=== PATIENT | female | born 1985 | race Caucasian/White ===

== ENCOUNTER 2016-05-31 14:58 | Emergency (ER) | payer BC ==
[~2016-05-31] VITALS: Ht 172.7 cm; Wt 158.8 kg
[2016-05-31] MEDS ORDERED: VISTARIL25 MG PO (15:25)
--- NOTE | 2016-05-31 15:39 | Emergency Room Report ---
History of Present Illness Time Seen by MD Roberts Presenting Problem in Triage Pt arrived:Walked Presenting Problem:PT REPORTS FEELING ANXIOUS AND DIZZY X2 DAYS. TODAY PT REPORTS EXPERIENCING NAUSEA. PT STATES SHE FELT TIGHTNESS ACROSS CHEST X2 DAYS. PT DENIES CHEST PAIN. PT STATES ANXIETY APPEARED SUDDENLY. 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 N Clinical Suspician of Infection? N Mental Status: 1 - Regular (Normal Baseline) Sepsis Risk:Possible Sepsis Risk Have you (or family members/close friends) recently traveled outside the [place]? N If Yes, where/when: Have you had exposure to infectious disease within the past month? N TB? Other? Specify: Source patient, RN notes reviewed Exam Limitations no limitations Comment History of Anciety and panic attacks but somewhat worse over the past couple of days. Some dizziness and concerned about vertigo. Took some vistaril earlier. She has PCOS and she and have been going through the process to have foster children over the past 6 monhts or so Cardiac Chest Pain Chest pain indicative of cardiac No ALLERGIES Coded Allergies: penicillin G (Mild, 06/29/15) Home Medications Reported Medications Hydroxyzine Pamoate (Vistaril) 25 MG PO TID PRN History Medical History General CAD? No Angina: No [place]: No Hypertension? No Hyperlipidemia? No CHF? No DVT? No PE? No COPD? No Asthma? Yes Anemia? No GERD? No Gastric ulcers? No GI Bleed? No Hernia? Yes Thyroid Problems? No Hypothyroidism? No CVA? No Seizures? No Diabetes? No Renal Insuffiency? No End Stage Renal Disease? No UTI? No Stones? No BPH? No GB Disease: Yes Nephritic Syndrome? No Asplenia? No Hepatitis? No Sickle Cell Disease? No Arthritis? No Migraines? No Cataracts? No Glaucoma? No MRSA? No HIV? No TB? No Anxiety? Yes Depression? No Cancer? No More? 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 Family History Family Hx Diabetes Yes CAD Yes Hypertension Yes Hyperlipidemia No Cancer Yes TB No Social History Smoking Hx Smoker: Current Every Day Smoker Tobacco: Yes Type Cigarettes Packs/day < 1 Pack Are you/the child exposed to second-hand smoke: Yes Alcohol Alcohol: No Review of Systems All Other Systems Reviewed and Negative Constitutional see HPI Psychiatric/Neurological see HPI Physical Exam Vital Signs Vital Signs Date Time Temp Pulse Resp B/P Pulse O2 O2 Flow FiO2 Ox Delivery Rate 05/31 1628 86 18 138/81 99 05/31 1523 98.3 106 20 152/88 99 05/31 1511 98.3 106 20 152/88 99 General Appearance normal appearance, WD/WN, no apparent distress, obese Ear, Nose, Throat normal ENT inspection Respiratory Status No: respiratory distress. 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 No Results/Orders Laboratory Tests 05/31/16 1626: Sodium 140, Potassium 3.9, Chloride 103, Carbon Dioxide 28, BUN 9, Creatinine 1.0, Estimated Creat Clear 201 H, Estimated GFR (MDRD) 64, Glucose 109 H, Calcium 9.1, Total Bilirubin 0.3, AST 13 L, ALT 20, Alkaline Phosphatase 72, Total Protein 7.4, Albumin 3.7, Globulin 3.7 H, Albumin/Globulin Ratio 1.0 L, WBC 6.9, RBC 4.65, Hgb 13.8, Hct 41.0, MCV 88.1, RDW 13.4, Plt Count 307, MPV 5.6 L, Gran % 61.0, Gran # 4.2, Lymphocytes % 32.4, Monocytes % 2.8, Eosinophils % 3.3, Basophils % 0.4, Lymphocytes # 2.2, Monocytes # 0.2, Eosinophils # 0.2, Basophils # 0.0, PUBS MCHC 33.7, MCH 29.7 05/31/16 1610: Urine Color YELLOW, Urine Appearance CLEAR, Urine pH 6.0, Ur Specific [place] <= 1.005, Urine Protein NEGATIVE, Urine Ketones NEGATIVE, Urine Blood TRACE-INTACT, Urine Nitrate NEGATIVE, Urine Bilirubin NEGATIVE, Urine Urobilinogen 0.2, Ur Leukocyte Esterase NEGATIVE, Urine RBC OCC, Urine WBC OCC, Ur Squamous Epith Cells OCC, Urine Bacteria 2+, Urine Glucose NEGATIVE Current Medication Orders Sig/Cristina Start time Last Medication Dose Route Stop Time Status Admin Buspirone HCl 0 .STK-MED ONE 05/31 1610 DC PO Buspirone HCl 5 MG ONCE ONE 05/31 1600 DC 05/31 PO 05/31 1601 1613 Orders Procedure Date/time Status CULTURE, URINE 05/31 1610 Active URINALYSIS/COMPLETE 05/31 1558 Complete URINE 05/31 1558 Complete CBC WITH AUTO DIFF 05/31 1558 Complete CHEM 12 PROFILE 05/31 1558 Complete Departure Departure Time of Disposition 1707 Disposition DC Home or Self Care(routine) Clinical Impression Primary Impression: Generalized anxiety disorder Condition STABLE Referrals Jolene Carter MD (Family): 3 Days-Call Office Patient Instructions DI for Anxiety -- Adult, Generalized Anxiety Disorder Additional Instructions Use meds as directed and return to the ED or followup with PCP as needed. Discharge Counseling Counseled pt/family regarding diagnosis, test results, medications/RX, home care, follow up needs Prescriptions Current Visit Scripts Buspirone Hcl (Buspar 10MG) 5 MG PO TID #30 TAB ED Critical Care Critical Care No If Critical Care minutes are documented, the time involved in the performance of seperately reportable procedures was not counted toward critical care time documented. I directly delivered medical care to this critically ill and/or injured patient. Timely evaluation and treatment was necessary to address the significant organ system(s) dysfunction present in this patient. at 1707
[2016-05-31 16:21] LABS: URINE BILIRUBIN - DIPSTICK NEGATIVE (NEG); URINE BLOOD TRACE-INTACT (NEG)
[2016-05-31 16:31] LABS: URINE SQUAMOUS CELLS OCC #/hpf (0-5)
[2016-05-31 16:39] LABS: HEMOGLOBIN 13.8 g/dL (12.2-16.2); LYMPH # 2.2 K/mm3 (0.7-4.5); LYMPH % 32.4 % (10-50.0)
[2016-05-31] MEDS ORDERED: BUSPAR 10MG TAB10 MG PO (17:09)
[2016-05-31 17:41] VITALS: BP 108/73
== END 2016-05-31 17:42 | disposition home or self-care (01) ==
LOC: UTC 14:58 → ER 15:00 → UTC 15:00 → ER 17:42
PROVIDERS: General Practice
DX: F41.9 Anxiety disorder, unspecified (principal); Z63.79 Other stressful life events affecting family and household

== ENCOUNTER 2016-11-28 14:40 | Emergency (ER) | payer BC ==
[~2016-11-28] VITALS: Ht 172.7 cm; Wt 170.1 kg
[~2016-11-28 14:40] MED LIST: BUSPAR 10MG TAB10 MG PO; VISTARIL25 MG PO
[2016-11-28] MEDS ORDERED: VIIBRYD10 MG PO (14:48)
[2016-11-28 14:58] LABS: HEMOGLOBIN 14.7 g/dL (12.2-16.2); LYMPH # 3.3 K/mm3 (0.7-4.5); LYMPH % 35.2 % (10-50.0)
[2016-11-28 15:18] LABS: BUN 10 mg/dL (7-18)
[2016-11-28 15:29] LABS: GFR (ESTIMATED) 64 ML/MIN (59-)
--- NOTE | 2016-11-28 15:41 | Emergency Room Report ---
History of Present Illness Time Seen by MD Howell Presenting Problem in Triage Pt arrived:Walked Presenting Problem:PT REPORTS NOT FEELING WELL X2 DAYS. PT REPORTS HAVING FEELINGS OF RAPID HEART RATE, REPORTS PERIODS OF FEELING LIGHTHEAD, ANXIOUS AND DULL PAIN IN CHEST. PT DENIES ANY PAIN AT THIS TIME. 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 N Clinical Suspician of Infection? N Mental Status: 1 - Regular (Normal Baseline) Sepsis Risk:Low Sepsis Risk Have you (or family members/close friends) recently traveled outside the [place]? N If Yes, where/when: Have you had exposure to infectious disease within the past month? N TB? Other? Specify: Comment Patient complains of rapid heartbeat and chest discomfort, possible panic attack. Symptoms for 2 days. Prior history of anxiety and panic attacks, but this is worse. She is been on 3 different medications for her symptoms without improvement. No recent stressors, except had a foster child that went back to its parents last week. ALLERGIES Coded Allergies: penicillin G (Mild, 06/29/15) Home Medications Reported Medications Vilazodone Hydrochloride (Viibryd) 10 MG PO DAILY History Medical History General CAD? No Angina: No [place]: No Hypertension? No Hyperlipidemia? No CHF? No DVT? No PE? No COPD? No Asthma? Yes Anemia? No GERD? No Gastric ulcers? No GI Bleed? No Hernia? Yes Thyroid Problems? No Hypothyroidism? No CVA? No Seizures? No Diabetes? No Renal Insuffiency? No End Stage Renal Disease? No UTI? No Stones? No BPH? No GB Disease: Yes Nephritic Syndrome? No Asplenia? No Hepatitis? No Sickle Cell Disease? No Arthritis? No Migraines? No Cataracts? No Glaucoma? No MRSA? No HIV? No TB? No Anxiety? Yes Depression? No Cancer? No More? 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 Family History Family Hx Diabetes Yes CAD Yes Hypertension Yes Hyperlipidemia No Cancer Yes TB No Social History Smoking Hx Smoker: Current Every Day Smoker Tobacco: Yes Type Cigarettes Packs/day < 1 Pack Alcohol Alcohol: No Review of Systems All Other Systems Reviewed and Negative Respiratory shortness of breath Cardiovascular chest pain, palpitations Physical Exam Vital Signs Vital Signs Date Time Temp Pulse Resp B/P Pulse O2 O2 Flow FiO2 Ox Delivery Rate 11/28 1628 20 11/28 1543 91 18 160/75 98 11/28 1443 98.7 95 18 160/102 98 General Appearance no apparent distress Eye Exam - bilateral eye normal exam, bilateral eye PERRL, bilateral eye EOMI Ear, Nose, Throat hearing grossly normal, normal ENT inspection Neck normal inspection, non-tender, supple, full range of motion Respiratory Status Yes: trachea midline, chest symmetrical. No: respiratory distress. Lung Sounds bilateral: normal breath sounds, lungs clear. Cardiovascular normal exam, regular rate/rhythm, no peripheral edema, no gallop, no JVD, no murmur, no rub, normal peripheral pulses Peripheral Pulses Pulses normal Yes Gastrointestinal normal bowel sounds, normal exam, non tender, soft, no organomegaly Extremities non-tender, normal range of motion, normal inspection Neurologic alert, normal exam, oriented x 3 Mental status normal mood/affect Skin intact, normal color, warm/dry Medical Decision Making LABS/Meds/Orders Pt receiving controlled substance in ED? Yes Kamar was queried for this patient? Yes Comment [id number] 0 rxs. Results/Orders Laboratory Tests 11/28/16 1515: Urine Color STRAW, Urine Appearance CLEAR, Urine pH 6.0, Ur Specific [place] <= 1.005, Urine Protein NEGATIVE, Urine Ketones NEGATIVE, Urine Blood TRACE-LYSED, Urine Nitrate NEGATIVE, Urine Bilirubin NEGATIVE, Urine Urobilinogen 0.2, Ur Leukocyte Esterase TRACE H, Urine WBC 3-5, Ur Squamous Epith Cells 5-10, Urine Bacteria 3+, Urine Glucose NEGATIVE 11/28/16 1445: TSH 2.41, Thyroxine (T4) 10.4 11/28/16 1445: Sodium 137, Potassium 3.8, Chloride 104, Carbon Dioxide 25, BUN 10, Creatinine 1.0, Estimated Creat Clear 214 H, Estimated GFR (MDRD) 64, Glucose 134 H, Calcium 8.8, Total Bilirubin 0.3, AST 11 L, ALT 19, Alkaline Phosphatase 72, Creatine Kinase 85, CK-MB (CK-2) Rel Index 0.6, CK and CKMB Interp < 0.5, Troponin I < 0.02, Total Protein 8.0, Albumin 3.8, Globulin 4.2 H, Albumin/ Globulin Ratio 0.9 L, D-Dimer 127, WBC 9.4, RBC 5.17, Hgb 14.7, Hct 44.1, MCV 85.2, RDW 13.6, Plt Count 300, MPV 7.0 L, Gran % 57.5, Gran # 5.4, Lymphocytes % 35.2, Monocytes % 4.2, Eosinophils % 2.7, Basophils % 0.4, Lymphocytes # 3.3, Monocytes # 0.4, Eosinophils # 0.3, Basophils # 0.0, PUBS MCHC 33.4, MCH 28.5 Current Medication Orders Sig/Cristina Start time Last Medication Dose Route Stop Time Status Admin Lorazepam 0 .STK-MED ONE 11/28 1626 DC .ROUTE Lorazepam 1 MG ONCE ONE 11/28 1600 DC 11/28 IV 11/28 1601 1628 Sodium Chloride 10 ML PRN PRN 11/28 1500 AC IV 11/29 1452 Orders Procedure Date/time Status CHEST(2 VIEWS-NOT PORTABLE) 11/28 1604 Active THYROID STIMULATING HORMONE 11/28 1548 Complete THYROXINE (T4) 11/28 1548 Complete D-DIMER 11/28 1548 Complete URINALYSIS/COMPLETE 11/28 1523 Complete CULTURE, URINE 11/28 1515 Active ELECTROCARDIOGRAM REQUEST 11/28 1452 Active IV SALINE LOCK 11/28 1452 Active CBC WITH AUTO DIFF 11/28 1452 Complete CARDIAC ENZYMES 11/28 1452 Complete CHEM 12 PROFILE 11/28 1452 Complete 12 LEAD EKG-[facility] (INITIAL) 11/28 UNK Active CM/EKG CM/EKG Comments EKG interpreted by Arnol Lujan MD: Rhythm: sinus tachycardia Rate: 102 [place]: Rightward Ectopy: none Conduction: normal ST Segment Changes: none T Wave Changes: none Q Waves: none No evidence of acute ischemia or injury XRAY/CT/US XRAY/CT/US XRAY chest Comment Chest x-ray interpreted by Arnol Lujan M.D. No infiltrate, pneumothorax, pleural effusion, or wide mediastinum. Epicardial fat pad. No prior x-rays for comparison. Departure Departure Disposition DC Home or Self Care(routine) Clinical Impression Primary Impression: Atypical chest pain Secondary Impressions: Palpitations, Panic disorder Condition STABLE Referrals Adele FERREIRA,Jaydon (Family) Patient Instructions DI for Atypical Chest Pain, DI for Palpitations, DI for Panic Disorder Additional Instructions Additional instructions for CHEST PAIN: See your physician as soon as possible for further evaluation. Return immediately if worsening chest pain, vomiting, shortness of breath, fever, coughing of blood. Prescriptions Current Visit Scripts Lorazepam (Ativan) 1 MG PO TIDP PRN anxiety #9 TAB ED Critical Care Critical Care No
--- NOTE | 2016-11-28 15:41 | Emergency Room Report ---
History of Present Illness Time Seen by MD Howell Presenting Problem in Triage Pt arrived:Walked Presenting Problem:PT REPORTS NOT FEELING WELL X2 DAYS. PT REPORTS HAVING FEELINGS OF RAPID HEART RATE, REPORTS PERIODS OF FEELING LIGHTHEAD, ANXIOUS AND DULL PAIN IN CHEST. PT DENIES ANY PAIN AT THIS TIME. 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 N Clinical Suspician of Infection? N Mental Status: 1 - Regular (Normal Baseline) Sepsis Risk:Low Sepsis Risk Have you (or family members/close friends) recently traveled outside the [place]? N If Yes, where/when: Have you had exposure to infectious disease within the past month? N TB? Other? Specify: Comment Patient complains of rapid heartbeat and chest discomfort, possible panic attack. Symptoms for 2 days. Prior history of anxiety and panic attacks, but this is worse. She is been on 3 different medications for her symptoms without improvement. No recent stressors, except had a foster child that went back to its parents last week. ALLERGIES Coded Allergies: penicillin G (Mild, 06/29/15) Home Medications Reported Medications Vilazodone Hydrochloride (Viibryd) 10 MG PO DAILY History Medical History General CAD? No Angina: No [place]: No Hypertension? No Hyperlipidemia? No CHF? No DVT? No PE? No COPD? No Asthma? Yes Anemia? No GERD? No Gastric ulcers? No GI Bleed? No Hernia? Yes Thyroid Problems? No Hypothyroidism? No CVA? No Seizures? No Diabetes? No Renal Insuffiency? No End Stage Renal Disease? No UTI? No Stones? No BPH? No GB Disease: Yes Nephritic Syndrome? No Asplenia? No Hepatitis? No Sickle Cell Disease? No Arthritis? No Migraines? No Cataracts? No Glaucoma? No MRSA? No HIV? No TB? No Anxiety? Yes Depression? No Cancer? No More? 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 Family History Family Hx Diabetes Yes CAD Yes Hypertension Yes Hyperlipidemia No Cancer Yes TB No Social History Smoking Hx Smoker: Current Every Day Smoker Tobacco: Yes Type Cigarettes Packs/day < 1 Pack Alcohol Alcohol: No Review of Systems All Other Systems Reviewed and Negative Respiratory shortness of breath Cardiovascular chest pain, palpitations Physical Exam Vital Signs Vital Signs Date Time Temp Pulse Resp B/P Pulse O2 O2 Flow FiO2 Ox Delivery Rate 11/28 1628 20 11/28 1543 91 18 160/75 98 11/28 1443 98.7 95 18 160/102 98 General Appearance no apparent distress Eye Exam - bilateral eye normal exam, bilateral eye PERRL, bilateral eye EOMI Ear, Nose, Throat hearing grossly normal, normal ENT inspection Neck normal inspection, non-tender, supple, full range of motion Respiratory Status Yes: trachea midline, chest symmetrical. No: respiratory distress. Lung Sounds bilateral: normal breath sounds, lungs clear. Cardiovascular normal exam, regular rate/rhythm, no peripheral edema, no gallop, no JVD, no murmur, no rub, normal peripheral pulses Peripheral Pulses Pulses normal Yes Gastrointestinal normal bowel sounds, normal exam, non tender, soft, no organomegaly Extremities non-tender, normal range of motion, normal inspection Neurologic alert, normal exam, oriented x 3 Mental status normal mood/affect Skin intact, normal color, warm/dry Medical Decision Making LABS/Meds/Orders Pt receiving controlled substance in ED? Yes Kamar was queried for this patient? Yes Comment [id number] 0 rxs. Results/Orders Laboratory Tests 11/28/16 1515: Urine Color STRAW, Urine Appearance CLEAR, Urine pH 6.0, Ur Specific [place] <= 1.005, Urine Protein NEGATIVE, Urine Ketones NEGATIVE, Urine Blood TRACE-LYSED, Urine Nitrate NEGATIVE, Urine Bilirubin NEGATIVE, Urine Urobilinogen 0.2, Ur Leukocyte Esterase TRACE H, Urine WBC 3-5, Ur Squamous Epith Cells 5-10, Urine Bacteria 3+, Urine Glucose NEGATIVE 11/28/16 1445: TSH 2.41, Thyroxine (T4) 10.4 11/28/16 1445: Sodium 137, Potassium 3.8, Chloride 104, Carbon Dioxide 25, BUN 10, Creatinine 1.0, Estimated Creat Clear 214 H, Estimated GFR (MDRD) 64, Glucose 134 H, Calcium 8.8, Total Bilirubin 0.3, AST 11 L, ALT 19, Alkaline Phosphatase 72, Creatine Kinase 85, CK-MB (CK-2) Rel Index 0.6, CK and CKMB Interp < 0.5, Troponin I < 0.02, Total Protein 8.0, Albumin 3.8, Globulin 4.2 H, Albumin/ Globulin Ratio 0.9 L, D-Dimer 127, WBC 9.4, RBC 5.17, Hgb 14.7, Hct 44.1, MCV 85.2, RDW 13.6, Plt Count 300, MPV 7.0 L, Gran % 57.5, Gran # 5.4, Lymphocytes % 35.2, Monocytes % 4.2, Eosinophils % 2.7, Basophils % 0.4, Lymphocytes # 3.3, Monocytes # 0.4, Eosinophils # 0.3, Basophils # 0.0, PUBS MCHC 33.4, MCH 28.5 Current Medication Orders Sig/Cristina Start time Last Medication Dose Route Stop Time Status Admin Lorazepam 0 .STK-MED ONE 11/28 1626 DC .ROUTE Lorazepam 1 MG ONCE ONE 11/28 1600 DC 11/28 IV 11/28 1601 1628 Sodium Chloride 10 ML PRN PRN 11/28 1500 AC IV 11/29 1452 Orders Procedure Date/time Status CHEST(2 VIEWS-NOT PORTABLE) 11/28 1604 Active THYROID STIMULATING HORMONE 11/28 1548 Complete THYROXINE (T4) 11/28 1548 Complete D-DIMER 11/28 1548 Complete URINALYSIS/COMPLETE 11/28 1523 Complete CULTURE, URINE 11/28 1515 Active ELECTROCARDIOGRAM REQUEST 11/28 1452 Active IV SALINE LOCK 11/28 1452 Active CBC WITH AUTO DIFF 11/28 1452 Complete CARDIAC ENZYMES 11/28 1452 Complete CHEM 12 PROFILE 11/28 1452 Complete 12 LEAD EKG-[facility] (INITIAL) 11/28 UNK Active CM/EKG CM/EKG Comments EKG interpreted by Arnol Lujan MD: Rhythm: sinus tachycardia Rate: 102 [place]: Rightward Ectopy: none Conduction: normal ST Segment Changes: none T Wave Changes: none Q Waves: none No evidence of acute ischemia or injury XRAY/CT/US XRAY/CT/US XRAY chest Comment Chest x-ray interpreted by Arnol Lujan M.D. No infiltrate, pneumothorax, pleural effusion, or wide mediastinum. Epicardial fat pad. No prior x-rays for comparison. Departure Departure Disposition DC Home or Self Care(routine) Clinical Impression Primary Impression: Atypical chest pain Secondary Impressions: Palpitations, Panic disorder Condition STABLE Referrals Adele FERREIRA,Jaydon (Family) Patient Instructions DI for Atypical Chest Pain, DI for Palpitations, DI for Panic Disorder Additional Instructions Additional instructions for CHEST PAIN: See your physician as soon as possible for further evaluation. Return immediately if worsening chest pain, vomiting, shortness of breath, fever, coughing of blood. Prescriptions Current Visit Scripts Lorazepam (Ativan) 1 MG PO TIDP PRN anxiety #9 TAB ED Critical Care Critical Care No
[2016-11-28 16:01] LABS: URINE BILIRUBIN - DIPSTICK NEGATIVE (NEG); URINE BLOOD TRACE-LYSED (NEG)
[2016-11-28] MEDS ORDERED: ATIVAN1 M1 PO (16:55)
[2016-11-28 17:38] VITALS: BP 160/75
--- NOTE | 2016-11-29 07:14 | RADIOLOGY REPORT PS360 ---
CHEST(2 VIEWS-NOT PORTABLE) HISTORY: Chest pain cp ORDERING PHYSICIAN: Arnol Lujan MD PATIENT AGE: 31 years COMPARISON: None available FINDINGS: The cardiomediastinal silhouette and pulmonary vascularity are within normal limits. The lungs are clear without infiltrates, suspicious nodules, or pleural effusions. No acute bony abnormalities. IMPRESSION: Negative chest, no acute finding
--- OUTSIDE RECORDS SUMMARY | 2016-11-29 20:32 | External Medical Summary Rpt | CCD ---
Author Author [employer] Organization [employer] Address Unknown Phone Unavailable Purpose Continuity of Care Document - through 2016
--- OUTSIDE RECORDS SUMMARY | 2016-11-29 20:33 | External Medical Summary Rpt | CCD ---
Demographics Preferred Language Estonian Marital Status Unknown Yazidi Affiliation Unknown Race Unknown Ethnic Group Unknown Author Author , CHRISTIANO ALVARADO Address Unknown Phone Immunization No patient found.
--- OUTSIDE RECORDS SUMMARY | 2016-11-29 20:33 | External Medical Summary Rpt | CCD ---
Demographics Preferred Language Romansh Marital Status Unknown Gnosticist Affiliation Unknown Race Unknown Ethnic Group Unknown Author Author , CHRISTIANO ALVARADO Address Unknown Phone Immunization No patient found.
[2016-12-19] MEDS ORDERED: FLONASE 50 MCG16 GM (09:42)
[2016-12-19] MEDS ORDERED: AMOXICILLIN 50500 MG PO (09:42)
== END 2016-11-28 17:39 | disposition home or self-care (01) ==
LOC: ER 14:40
PROVIDERS: Emergency Medicine
DX: R07.89 Other chest pain (principal); R00.2 Palpitations; Z88.0 Allergy status to penicillin; J45.909 Unspecified asthma, uncomplicated; F17.210 Nicotine dependence, cigarettes, uncomplicated; F41.0 Panic disorder [episodic paroxysmal anxiety]

== ENCOUNTER 2016-12-22 10:34 | Emergency (ER) | payer BC ==
[~2016-12-22] VITALS: Ht 172.7 cm; Wt 158.8 kg
[~2016-12-22 10:34] MED LIST changes: +AMOXICILLIN 50500 MG PO; +ATIVAN1 M1 PO; +FLONASE 50 MCG16 GM; +VIIBRYD10 MG PO
--- OUTSIDE RECORDS SUMMARY | 2016-12-22 10:39 | External Medical Summary Rpt | CCD ---
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 F41.1 GENERALIZED ANXIETY DISORDER R00.2 PALPITATION S R07.89 OTHER CHEST PAIN T14.8 OTHER INJURY OF UNSPECIFIED BODY REGION Results Labs Lab Lab Date Result Refere Interp Status Commen Order Detail nces retati t Range on Urinalysis with microscopy (11-28-2016 15:15) Urine 3 - 5 O complet leukocy 017 wbc/hpf ed aaliyah 15:15 count (number /volume ) Urine 0.2 0.2 NEG complet urobili 017 L ed nogen 15:15 E.U./dL detecti on by test str [place] 5-10 0-5 complet s 017 5-10 L ed epithel 15:15 #/hpf ial cells detecti on in u Urine < = 1.005-1 complet specifi 017 1.005 .030 ed c 15:15 gravity measure ment Urine = NEG complet protein 017 NEGATIV ed 15:15 E mg/dL measure ment by automat ed t Urine = 6.0 5.0-8.5 complet pH 017 ed 15:15 Urine NEGATIV NEG complet nitrite 017 E ed 15:15 NEGATIV detecti E L on by test strip Mucus TRACE NEG complet detecti 017 TRACE L ed on in 15:15 urine sedimen t by lig Urine NEGATIV NEG complet ketones 017 E ed 15:15 NEGATIV detecti E L on by mg/dL automat ed aaliyah Glucose = NEG complet ur 017 NEGATIV ed test 15:15 E strip Urine STRAW YELLOW complet color 017 STRAW L ed 15:15 Urine TRACE-L NEG complet blood 017 YSED ed detecti 15:15 TRACE-L on YSED L Urine NEGATIV NEG complet total 017 E ed bilirub 15:15 NEGATIV in E L detecti on by test Bacteri 3+ 3+ L O complet a 017 ed detecti 15:15 on in urine sedimen t by Urine CLEAR CLEAR complet appeara 017 CLEAR L ed nce 15:15 determi [facility] Comprehensive metabolic panel (11-28-2016 14:45) Protein = 8.0 6.4-8.2 complet total 017 gm/dL ed ser/marlyn 14:45 s ALT = 19 12-78 complet (SGPT) 017 U/L ed ser/marlyn 14:45 s Serum = 11 15-37 complet or 017 U/L ed plasma 14:45 asparta te aminotr ansfera Serum = 137 136-145 complet sodium 017 mmoL/L ed measure 14:45 ment Serum = 3.8 3.5-5.1 complet potassi 017 mmoL/L ed um 14:45 measure ment Serum = 134 74-106 complet or 017 mg/dL ed plasma 14:45 glucose measure ment (mas Serum = 4.2 1.3-3.2 complet globuli 017 gm/dL ed n 14:45 measure ment (mass/v olume) Estimat = 64 59- complet ed 017 ML/MIN ed glomeru 14:45 lar filtrat ion rate (GF Comment: REFERENCE RANGE: >60 ML/MIN/1.73 SQUARE METERS Comment: If this patient is -Guatem[place], then multiply the Comment: result by 1.210. Estimat = 214 50-200 complet ion of 017 ML/MIN ed creatin 14:45 ine renal clearan ce Serum = 1.0 0.55-1. complet or 017 mg/dL 02 ed plasma 14:45 creatin ine measure ment ( Carbon = 25 21.0-32 complet dioxide 017 mmoL/L .0 ed 14:45 measure ment Serum = 104 98-107 complet or 017 mmoL/L ed plasma 14:45 chlorid e measure ment (mo Serum = 8.8 8.5-10. complet or 017 mg/dL 1 ed plasma 14:45 calcium measure ment (mas Serum = 10 7-18 complet or 017 mg/dL ed plasma 14:45 urea nitroge n measure men Serum = 0.3 0.2-1.0 complet or 017 mg/dL ed plasma 14:45 total bilirub in measure m Serum = 72 46-116 complet or 017 U/L ed plasma 14:45 alkalin e phospha tase rubén Serum = 3.8 3.4-5.0 complet or 017 gm/dL ed plasma 14:45 albumin measure ment (mas Serum = 0.9 1.1-1.8 complet or 017 ed plasma 14:45 albumin /globul in mass ra Cardiac enzymes (11-28-2016 14:45) Serum < 0.02 0.00-0. complet or 017 ng/mL 06 ed plasma 14:45 troponi n i.cardi ac measu Serum = 85 26-192 complet or 017 U/L ed plasma 14:45 creatin e kinase measure m Serum < 0.5 0.0-3.6 complet or 017 ng/mL ed plasma 14:45 creatin e kinase MB measu Serum = 0.6 0-4.0 complet or 017 U/L ed plasma 14:45 creatin e kinase MB (CK-M Serum or plasma thyroid stimulating horm (11-28-2016 14:45) Serum = 2.41 0.358-3 complet or 017 uIU/ml .740 ed plasma 14:45 thyroid stimula ting horm Thyroxine (11-28-2016 14:45) Thyroxi = 10.4 4.7-13. complet ne 017 ug/dl 3 ed 14:45 D-dimer (11-28-2016 14:45) D-dimer = 127 0-400 complet 017 ng/mL ed 14:45 Comment: The D-Dimer values are presented in units of mass(ng/mL) of Comment: D-Dimer units(DDU). Comment: Comment: This test has been FDA approved as an aid in the assessment Comment: and evaluation of suspected DIC, and thromboembolic events Comment: including PE and DVT. However, it does not have approval Comment: for cut-off values for the exclusion of these conditions. CBC w auto diff (11-28-2016 14:45) Automat = 7.0 7.4-10. complet ed 017 fl 4 ed blood 14:45 platele t mean volume rubén Mcdowell % = 4.2 % 1.7-9.3 complet 017 ed 14:45 Absolut = 0.4 0.1-1.0 complet e 017 K/mm3 ed monocyt 14:45 e count Automat = 85.2 82.2-97 complet ed 017 fl .8 ed erythro 14:45 cyte mean corpusc ular v Automat = 33.4 31.8-35 complet ed 017 g/dl .4 ed erythro 14:45 cyte mean corpusc ular h Mean = 28.5 27-31.2 complet corpusc 017 pg ed ular 14:45 hemoglo bin (MCH) determ Lymphoc = 35.2 10-50.0 complet yte 017 % ed count, 14:45 blood, automat ed Absolut = 3.3 0.7-4.5 complet e 017 K/mm3 ed lymphoc 14:45 yte count Blood = 14.7 12.2-16 complet hemoglo 017 g/dL .2 ed bin 14:45 measure ment (mass/v olum Blood = 44.1 37.0-47 complet hematoc 017 % .0 ed rit 14:45 (volume fractio n) Granulo = 57.5 37.0-80 complet cyte 017 % .0 ed percent 14:45 age Blood = 5.4 1.8-7.8 complet granulo 017 K/mm3 ed cytes 14:45 automat ed count (numb Automat = 2.7 % 0.1-12. complet ed 017 0 ed blood 14:45 eosinop hils/10 0 leukocy t Automat = 0.3 0.0-0.4 complet ed 017 K/mm3 ed blood 14:45 eosinop hil count Baso % = 0.4 % 0.1-2.0 complet 017 ed 14:45 Automat = 0.0 0-0.2 complet ed 017 K/MM3 ed blood 14:45 basophi l count (count/ vo Automat = 13.6 11.5-17 complet ed 017 % .5 ed erythro 14:45 cyte distrib ution width Red = 5.17 4.2-5.4 complet blood 017 M/mm3 ed cell 14:45 count Blood = 9.4 4.8-10. complet leukocy 017 K/MM3 8 ed aaliyah 14:45 count (number /volume ) Blood = 300 142-424 complet platele 017 K/mm3 ed t count 14:45
--- OUTSIDE RECORDS SUMMARY | 2016-12-22 10:39 | External Medical Summary Rpt | CCD ---
Demographics Preferred Language Estonian Marital Status Unknown Druze Affiliation Unknown Race Unknown Ethnic Group Unknown Author Author , CHRISTIANO ALVARADO Address Unknown Phone Immunization No patient found.
--- OUTSIDE RECORDS SUMMARY | 2016-12-22 10:39 | External Medical Summary Rpt | CCD ---
Demographics Preferred Language Uzbek Marital Status Unknown Zoroastrian Affiliation Unknown Race Unknown Ethnic Group Unknown Author Author , CHRISTIANO ALVARADO Address Unknown Phone Immunization No patient found.
--- OUTSIDE RECORDS SUMMARY | 2016-12-22 10:39 | External Medical Summary Rpt | CCD ---
Author Author , CHRISTIANO Organization CHRISTIANO Address Unknown Phone [email or web address] Purpose Continuity of Care Document - 11-28-2016 [...] 017 CLEAR L ed nce 15:15 determi [email or web address] Comprehensive metabolic panel (11-28-2016 14:45) Protein = [...] SQUARE METERS Comment: If this patient is -Egyptian, then multiply the Comment: result by 1.210. [...] blood 14:45 platele t mean volume rubén Brule % = 4.2 % 1.7-9.3 complet 017 [...]
--- OUTSIDE RECORDS SUMMARY | 2016-12-22 10:39 | External Medical Summary Rpt ---
Author Author CHRISTIANO Nova, CHRISTIANO [employer] Organization [employer] Address Unknown Phone Unavailable Results Thyroxine (T4) [Mass/volume] in Serum or Plasma Observa Value Referen Units Interpr Notes Date tion ce etation Range Thyroxine 4.7 - ug/dl Normal No Nov 28 (T4) 13.3 informati 2016 2:45 [Mass/vol on in PM ume] in source Serum or data Plasma Thyrotropin [Units/volume] in Serum or Plasma Observa Value Referen Units Interpr Notes Date tion ce etation Range Thyrotrop 0.358 - uIU/ml Normal No Nov 28 in 3.740 informati 2016 2:45 [Units/vo on in PM lume] in source Serum or data Plasma Fibrin D-dimer FEU [Mass/volume] in Platelet poor plasma Observa Value Referen Units Interpr Notes Date tion ce etation Range Fibrin 0 - 400 ng/mL Normal The Nov 28 D-dimer D-Dimer 2017 2:45 FEU values PM [Mass/vol are ume] in presented Platelet in units poor of plasma mass(ng/m L) ofD-Dimer units(DDU ).This test has been FDA approved as an aid in the assessmen tand evaluatio n of suspected DIC, and thromboem bolic eventsinc luding PE and DVT. However, it does not have approvalf or cut-off values for the exclusion of these condition s. CBC W Auto Differential panel in Blood Observa Value Referen Units Interpr Notes Date tion ce etation Range Basophils 0 - 0.2 K/MM3 Normal No Nov 28 informati 2016 2:45 [#/volume on in PM ] in source Blood by data Automated count Basophils 0.1 - 2.0 % Normal No Nov 28 informati 2016 2:45 leukocyte on in PM s in source Blood by data Automated count Eosinophi 0.0 - 0.4 K/mm3 Normal No Nov 28 ls informati 2016 2:45 [#/volume on in PM ] in source Blood by data Automated count Eosinophi 0.1 - % Normal No Nov 28 ls/100 12.0 informati 2016 2:45 leukocyte on in PM s in source Blood by data Automated count Granulocy 1.8 - 7.8 K/mm3 Normal No Nov 28 aaliyah inform2016 2:45 [#/volume on in PM ] in source Blood by data Automated count Granulocy 37.0 - % Normal No Nov 28 aaliyah/100 80.0 informati 2016 2:45 leukocyte on in PM s in source Blood by data Automated count Hematocri 37.0 - % Normal No Nov 28 t [Volume 47.0 inform2016 2:45 on in PM Fraction] source of Blood data Hemoglobi 12.2 - g/dL Normal No Nov 28 n 16.2 informati 2016 2:45 [Mass/vol on in PM ume] in source Blood data Lymphocyt 0.7 - 4.5 K/mm3 Normal No Nov 28 es informati 2016 2:45 [#/volume on in PM ] in source Unspecifi data ed specimen by Automated count Lymphocyt 10 - 50.0 % Normal No Nov 28 es inform2016 2:45 [#/volume on in PM ] in source Unspecifi data ed specimen by Automated count Erythrocy 27 - 31.2 pg Normal No Nov 28 te mean inform2016 2:45 corpuscul on in PM ar source hemoglobi data n [Entitic mass] Erythrocy 31.8 - g/dl Normal No Nov 28 te mean 35.4 inform2016 2:45 corpuscul on in PM ar source hemoglobi data n concentra tion [Mass/vol ume] by Automated count Erythrocy 82.2 - fl Normal No Nov 28 te mean 97.8 inform2016 2:45 corpuscul on in PM ar volume source [Entitic data volume] by Automated count Monocytes 0.1 - 1.0 K/mm3 Normal No Nov 28 informati 2016 2:45 [#/volume on in PM ] in source Blood by data Automated count Monocytes 1.7 - 9.3 % Normal No Nov 28 informati 2016 2:45 leukocyte on in PM s in source Blood by data Automated count Platelet 7.4 - fl Low No Nov 28 mean 10.4 informati 2016 2:45 volume on in PM [Entitic source volume] data in Blood by Automated count Platelets 142 - 424 K/mm3 Normal No Nov 28 informati 2017 2:45 [#/volume on in PM ] in source Blood data Erythrocy 4.2 - 5.4 M/mm3 Normal No Nov 28 aaliyah informati 2016 2:45 [#/volume on in PM ] in source Amniotic data fluid Erythrocy 11.5 - % Normal No Nov 28 te 17.5 informati 2016 2:45 distribut on in PM ion width source [Entitic data volume] by Automated count Leukocyte 4.8 - K/MM3 Normal No Nov 28 s 10.8 informati 2016 2:45 [#/volume on in PM ] in source Blood data
--- OUTSIDE RECORDS SUMMARY | 2016-12-22 10:39 | External Medical Summary Rpt ---
Author Author CHRISTIANO Nova, CHRISTIANO [employer] Organization [employer] Address Unknown Phone Unavailable [...]
--- NOTE | 2016-12-22 11:33 | Urgent Treatment Center Report ---
History of Present Issue Date/Time Seen by Provider 12/22/16 1125 Visit Reason Pt arrived:Walked Presenting Problem:PT STATES THAT SHE WAS SEEN IN [facility] THURSDAY FOR LEFT EAR INFECTION AND HAS BEEN TAKING AMOXICILLIN BUT FEELS IT IS NOT IMPROVING AND HAS PAIN GOING DOWN HER NECK. Location if Accident: Onset of symptoms date/time:12/19/1605/02/999 or onset unknown for: Have you (or family members/close friends) recently traveled outside the [place]? N If Yes, where/when: Have you had exposure to infectious disease within the past month? TB? Other? Specify: c/o persistant left ear pain and decreased hearing. Present x 1 week. Was seen in [facility] Thursday, 3 days ago. Dx otitis media and sinusitis. Started on flonase and amoxicillin. Right ear pain no longer noticeable. Sinus pain resolved. However, left ear pain no better and radiating into neck. "I can't hear at all now". No fever. Ibuprofen helping w/ headache but not ear pain. Source patient Exam Limitations no limitations ALLERGIES Coded Allergies: penicillin G (Mild, 06/29/15) Home Medications Active Scripts Amoxicillin Trihydrate (Amoxicillin 500MG) 500 MG PO TID #30 CAP Prov: 12/19/16 Fluticasone Propionate (Flonase 50 Mcg Nasal [place]) 2 SPRAY NA DAILY #1 BOT Prov: 12/19/16 Lorazepam (Ativan) 1 MG PO TIDP PRN anxiety #9 TAB Prov: 11/28/16 Reported Medications Vilazodone Hydrochloride (Viibryd) 10 MG PO DAILY History Medical History General CAD? No Angina: No IN: No Hypertension? No Hyperlipidemia? No CHF? No DVT? No PE? No COPD? No Asthma? Yes Anemia? No GERD? No Gastric ulcers? No GI Bleed? No Hernia? Yes Thyroid Problems? No Hypothyroidism? No CVA? No Seizures? No Diabetes? No Renal Insuffiency? No UTI? No Stones? No BPH? No GB Disease: Yes Nephritic Syndrome? No Asplenia? No Hepatitis? No Sickle Cell Disease? No Arthritis? No Migraines? No Cataracts? No Glaucoma? No MRSA? No HIV? No TB? No Anxiety? Yes Depression? No Cancer? No More? Yes Additional hx: PCOS Immunization HX DT/Tetanus 1-4 Years Ago Flu NOT RECENT Pneumonia Never Had Surgical Hx Previous Surgery?Y D&C, 2007 LT INGUINAL HERNIA REPAIR WISDOM TEETH EXTRACTION GALLBLADDER Family History Family HX Diabetes Yes CAD Yes Hypertension Yes Hyperlipidemia No Cancer Yes TB No Social History Smoking Hx Smoker: Current Every Day Smoker Tobacco: Yes Type Cigarettes Packs/day < 1 Pack Alcohol Alcohol: No Review of Systems All Other Systems Reviewed and Negative Constitutional see HPI Eyes denies drainage, denies pain, denies vision change ENT see HPI. denies: ear discharge, nose discharge, nose congestion, throat pain, throat swelling. Respiratory denies cough Cardiovascular denies no symptoms reported Gastrointestinal denies no symptoms reported Skin denies lesions, denies rash Psychiatric/Neurological see HPI, denies other (dizziness) Physical Exam Vital Signs Vital Signs Date Time Temp Pulse Resp B/P Pulse O2 O2 Flow FiO2 Ox Delivery Rate 12/22 1148 98.9 88 20 188/95 98 12/22 1058 98.9 88 20 188/95 98 General Appearance no apparent distress, obese (morbidly) Eye Exam - bilateral eye normal exam Ear, Nose, Throat normal pharynx, normal tabitha nares, Right EAC and TM appear normal, left EAC normal and nontender but left TM light red, bulging, campos fluid present blocking view of landmarks Neck non-tender, supple, full range of motion Respiratory Status No: respiratory distress, productive cough, non productive cough. Lung Sounds anterior: lungs clear. posterior: lungs clear. bilateral: lungs clear. 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 No Departure Departure Time of Disposition 1140 Disposition DC Home or Self Care(routine) Clinical Impression Primary Impression: Left otitis media with effusion Secondary Impressions: High blood pressure Qualifiers: Hypertension type: unspecified Qualified Code: I10 - Essential ( primary) hypertension Condition STABLE Referrals NO REFERRAL Follow up with [facility] Thursday and if no improvement, will plan to refer to ENT. Follow up sooner for new or worsening symptoms. Follow with primary care regarding elevated blood pressure. Can be elevated due to pain. Patient Instructions DI for High Blood Pressure, DI for Otitis Media (Middle Ear Infection)-Child Additional Instructions * Continue antibiotic as ear drum color appears to be improving. Be sure to take as ordered for the FULL length of time although you should start to feel better in 24-48 hours. * Continue flonase * Start Claritin D * Start steroids.. Follow directions on package. Rvwd side effects. Pt reports they have taken them before. * Monitor Temp. Tylenol every 4 hours as needed no more then 5 times a day or 4000mg in 24 hours and/or ibuprofen every 6 hours as needed no more then 3200mg in 24 hours (as long as your primary care doctor has told you that it is ok to take both) for fever/aches/pain. ER if fever no less than 101 despite Tylenol and ibuprofen * Encourage fluids, water, Gatorade, PowerAde, pedialyte if /toddler/child * warm compress often helps when placed over ear * sleep elevated * Follow up in 48 hours re: ear pain but also schedule follow up due to elevated blood pressure Discharge Counseling Counseled pt/family regarding diagnosis, medications/RX, home care, follow up needs Prescriptions Current Visit Scripts Prednisone (Prednisone 20MG) 20 MG PO BID #10 TAB at 1154
--- NOTE | 2016-12-22 11:33 | Urgent Treatment Center Report ---
History of Present Issue Date/Time Seen by Provider 12/22/16 1125 Visit Reason Pt arrived:Walked Presenting Problem:PT STATES THAT SHE WAS SEEN IN [facility] THURSDAY FOR LEFT EAR INFECTION AND HAS BEEN TAKING AMOXICILLIN BUT FEELS IT IS NOT IMPROVING AND HAS PAIN GOING DOWN HER NECK. Location if Accident: Onset of symptoms date/time:12/19/1605/02/999 or onset unknown for: Have you (or family members/close friends) recently traveled outside the [place]? N If Yes, where/when: Have you had exposure to infectious disease within the past month? TB? Other? Specify: c/o persistant left ear pain and decreased hearing. Present x 1 week. Was seen in [facility] Thursday, 3 days ago. Dx otitis media and sinusitis. Started on flonase and amoxicillin. Right ear pain no longer noticeable. Sinus pain resolved. However, left ear pain no better and radiating into neck. "I can't hear at all now". No fever. Ibuprofen helping w/ headache but not ear pain. Source patient Exam Limitations no limitations ALLERGIES Coded Allergies: penicillin G (Mild, 06/29/15) Home Medications Active Scripts Amoxicillin Trihydrate (Amoxicillin 500MG) 500 MG PO TID #30 CAP Prov: 12/19/16 Fluticasone Propionate (Flonase 50 Mcg Nasal [place]) 2 SPRAY NA DAILY #1 BOT Prov: 12/19/16 Lorazepam (Ativan) 1 MG PO TIDP PRN anxiety #9 TAB Prov: 11/28/16 Reported Medications Vilazodone Hydrochloride (Viibryd) 10 MG PO DAILY History Medical History General CAD? No Angina: No AR: No Hypertension? No Hyperlipidemia? No CHF? No DVT? No PE? No COPD? No Asthma? Yes Anemia? No GERD? No Gastric ulcers? No GI Bleed? No Hernia? Yes Thyroid Problems? No Hypothyroidism? No CVA? No Seizures? No Diabetes? No Renal Insuffiency? No UTI? No Stones? No BPH? No GB Disease: Yes Nephritic Syndrome? No Asplenia? No Hepatitis? No Sickle Cell Disease? No Arthritis? No Migraines? No Cataracts? No Glaucoma? No MRSA? No HIV? No TB? No Anxiety? Yes Depression? No Cancer? No More? Yes Additional hx: PCOS Immunization HX DT/Tetanus 1-4 Years Ago Flu NOT RECENT Pneumonia Never Had Surgical Hx Previous Surgery?Y D&C, 2007 LT INGUINAL HERNIA REPAIR WISDOM TEETH EXTRACTION GALLBLADDER Family History Family HX Diabetes Yes CAD Yes Hypertension Yes Hyperlipidemia No Cancer Yes TB No Social History Smoking Hx Smoker: Current Every Day Smoker Tobacco: Yes Type Cigarettes Packs/day < 1 Pack Alcohol Alcohol: No Review of Systems All Other Systems Reviewed and Negative Constitutional see HPI Eyes denies drainage, denies pain, denies vision change ENT see HPI. denies: ear discharge, nose discharge, nose congestion, throat pain, throat swelling. Respiratory denies cough Cardiovascular denies no symptoms reported Gastrointestinal denies no symptoms reported Skin denies lesions, denies rash Psychiatric/Neurological see HPI, denies other (dizziness) Physical Exam Vital Signs Vital Signs Date Time Temp Pulse Resp B/P Pulse O2 O2 Flow FiO2 Ox Delivery Rate 12/22 1148 98.9 88 20 188/95 98 12/22 1058 98.9 88 20 188/95 98 General Appearance no apparent distress, obese (morbidly) Eye Exam - bilateral eye normal exam Ear, Nose, Throat normal pharynx, normal tabitha nares, Right EAC and TM appear normal, left EAC normal and nontender but left TM light red, bulging, campos fluid present blocking view of landmarks Neck non-tender, supple, full range of motion Respiratory Status No: respiratory distress, productive cough, non productive cough. Lung Sounds anterior: lungs clear. posterior: lungs clear. bilateral: lungs clear. 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 No Departure Departure Time of Disposition 1140 Disposition DC Home or Self Care(routine) Clinical Impression Primary Impression: Left otitis media with effusion Secondary Impressions: High blood pressure Qualifiers: Hypertension type: unspecified Qualified Code: I10 - Essential ( primary) hypertension Condition STABLE Referrals NO REFERRAL Follow up with [facility] Thursday and if no improvement, will plan to refer to ENT. Follow up sooner for new or worsening symptoms. Follow with primary care regarding elevated blood pressure. Can be elevated due to pain. Patient Instructions DI for High Blood Pressure, DI for Otitis Media (Middle Ear Infection)-Child Additional Instructions * Continue antibiotic as ear drum color appears to be improving. Be sure to take as ordered for the FULL length of time although you should start to feel better in 24-48 hours. * Continue flonase * Start Claritin D * Start steroids.. Follow directions on package. Rvwd side effects. Pt reports they have taken them before. * Monitor Temp. Tylenol every 4 hours as needed no more then 5 times a day or 4000mg in 24 hours and/or ibuprofen every 6 hours as needed no more then 3200mg in 24 hours (as long as your primary care doctor has told you that it is ok to take both) for fever/aches/pain. ER if fever no less than 101 despite Tylenol and ibuprofen * Encourage fluids, water, Gatorade, PowerAde, pedialyte if /toddler/child * warm compress often helps when placed over ear * sleep elevated * Follow up in 48 hours re: ear pain but also schedule follow up due to elevated blood pressure Discharge Counseling Counseled pt/family regarding diagnosis, medications/RX, home care, follow up needs Prescriptions Current Visit Scripts Prednisone (Prednisone 20MG) 20 MG PO BID #10 TAB at 1154
[2016-12-22] MEDS ORDERED: PREDNISONE 20MG20 MG PO (11:43)
[2016-12-22 11:48] VITALS: BP 164/85
== END 2016-12-22 11:55 | disposition home or self-care (01) ==
LOC: UTC 10:34
DX: H65.192 Other acute nonsuppurative otitis media, left ear (principal); Z72.0 Tobacco use; R03.0 Elevated blood-pressure reading, without diagnosis of hypertension; J45.909 Unspecified asthma, uncomplicated; F41.9 Anxiety disorder, unspecified